=== PATIENT | male | born 1990 | race African-American/Black ===

== ENCOUNTER 2018-10-21 06:38 | Day surgery (SDC) | payer OTHER ==
[~2018-10-21 06:38] MED LIST: CEFAZOLIN 1 GM/D5W RTU 1 GM/50 ML RTUPB IV PRN
[2018-10-21] MEDS ORDERED: LIDOCAINE 2% INJ (20 MG/ML) 20 ML MDV ONE (07:13)
[2018-10-21] MEDS ORDERED: ONDANSETRON HCL INJ/PF 4 MG/2 ML SDV ONE (07:25)
[2018-10-21] MEDS ORDERED: HYDROMORPHONE HCL INJ/PF 2 MG/ML AMPULE ONE (07:26)
[2018-10-21] MEDS ORDERED: MIDAZOLAM 2 MG/2 ML INJ ONE (07:26)
[2018-10-21] MEDS ORDERED: DEXAMETHASONE SOD PHOSPHATE INJ 4 MG/1 ML VIAL ONE (07:26)
[2018-10-21] MEDS ORDERED: SUCCINYLCHOLINE CHLORIDE INJ 200 MG/10 ML VIAL ONE (07:27)
[2018-10-21] MEDS ORDERED: PROPOFOL INJ 200 MG/20 ML VIAL IV ONE (07:27)
[2018-10-21] MEDS ORDERED: FENTANYL CITRATE INJ/PF 100 MCG/2 ML AMPUL ONE (07:40)
[2018-10-21] MEDS: BUPIVACAINE HCL 0.5 % INJ/PF 30 ML SDV ONE ×2 (08:50)
[2018-10-21] MEDS: NORMAL SALINE INJ/PF 0.9% 10 ML SDV ONE ×2 (09:10)
[2018-10-21] MEDS: POLYMYXIN B SULFATE INJ 500000 UNIT VIAL ONE ×2 (09:10)
[2018-10-21] MEDS: BACITRACIN INJ 50,000 UNIT VIAL ONE ×2 (09:10)
[2018-10-21] MEDS: BUPIVACAINE INJ/PF LIPOSOME/PF 266 MG/20 ML SDV ONE ×2 (09:15)
[2018-10-21] MEDS ORDERED: KETOROLAC TROMETHAMINE INJ/PF 30 MG/1 ML SDV ONE (09:21)
--- NOTE | 2018-10-21 10:04 | RADIOLOGY REPORT (SQ) ---
EXAM DESCRIPTION: NO CHG FLUORO; FOOT RIGHT 2 VIEWS COMPLETED DATE/TIME: 10/21/2018 9:38 am REASON FOR STUDY: RT FOOT BUNIONECTOMY/SESMOIDECTOMY COMPARISON: None. FINDINGS: Fluoro time 12 seconds. 2 images obtained. Patient undergoing bunionectomy. Please correlate with operative note. TECHNICAL DOCUMENTATION: JOB ID: [id number] Reading location - IP/workstation name: [email or web address]
--- NOTE | 2018-10-21 10:04 | RADIOLOGY REPORT (SQ) ---
EXAM DESCRIPTION: NO CHG FLUORO; FOOT RIGHT 2 VIEWS COMPLETED DATE/TIME: 10/21/2018 9:38 am REASON FOR STUDY: RT FOOT BUNIONECTOMY/SESMOIDECTOMY COMPARISON: None. FINDINGS: Fluoro time 12 seconds. 2 images obtained. Patient undergoing bunionectomy. Please correlate with operative note. TECHNICAL DOCUMENTATION: JOB ID: [id number] Reading location - IP/workstation name: [email or web address]
--- NOTE | 2018-10-21 10:27 | [facility]ARE OPERATIVE REPORT E ---
[facility] Operative Report NAME: MARTÍN MUNOZ AGE: 28Y DATE OF SURGERY: 10/21/2018 ROOM: PREOPERATIVE DIAGNOSES: 1. Hallux abductovalgus, right foot. 2. Nonhealed fracture of the medial sesamoid of the right foot. POSTOPERATIVE DIAGNOSES: 1. Hallux abductovalgus, right foot. 2. Nonhealed fracture of the medial sesamoid of the right foot. OPERATION: 1. Eitan bunionectomy with internal screw fixation. 2. Excision of medial sesamoid, first metatarsophalangeal joint, right. SURGEON: RAD BUI DPM ANESTHESIA: General. PROCEDURE: On 10/21/2018 the patient was admitted to [facility] with complaints of painful right foot. The patient was taken to the operating room where following the induction of general anesthesia the patient's right foot and leg were prepped and draped in the usual sterile manner. Tourniquet was placed proximal to the ankle malleoli. Esmarch was applied. Tourniquet was inflated to a level of 250 mmHg. Esmarch was removed. Sterile draping was completed. The following procedure was performed. Attention was directed to the dorsal aspect of the patient's first metatarsophalangeal joint where a 5 cm curvilinear incision was placed medial to the longus extensor tendon. This was deepened through the subcutaneous tissue and superficial fascia. All bleeding vessels were clamped, ligated, and Bovied as necessary for hemostasis. The incision was further deepened via sharp and blunt dissection. The longus extensor tendon was identified, undermined, and retracted laterally for preservation. An incision was made in the capsular and periosteal structures in a similar fashion as the original skin incision. Capsular and periosteal structures were freed from their osseous attachments, retracted as necessary for exposure of the first metatarsophalangeal joint. There was noted to be hypertrophied medial aspect of the first metatarsal head. The medial metatarsal was then osteotomized in dorsal plantar fashion, removing approximately a 2 mm wedge of bone. Attention was directed to the first interspace. Dissection was carried down to the adductor hallucis which was then freed from its osseous attachments, thus relieving lateral contracture of the hallux. Attention was redirected back to the first metatarsophalangeal joint. There was noted to be a small, cartilaginous erosion that was located centrally on the first metatarsal head, approximately 3 mm in diameter. The articula surface of the base of the proximal phalanx was normal. Attention was then directed to the medial plantar aspect of the joint and the medial sesamoid was identified. The old fracture line was examined and identified, and the distal medial portion of the sesamoid was noted to be devoid of articular cartilage and yellow in appearance. The plantar aspect of the medial sesamoid groove was examined and it was noted to be completely eroded articular surface. It was felt at this time that removal of the medial sesamoid would help relieve the patient's preoperative painful symptoms. At this time, utilizing sharp dissection, the 2 fragments of the medial sesamoid were then removed en toto. The long flexor tendon was identified and noted to be intact and without damage. At that time attention was directed to the head of the first metatarsal where the prior cartilaginous lesion was identified and was sharply excised, and the edges were then feathered. Then, utilizing a 1.1 mm drill bit, the hole was then fenestrated to allow for fibrocartilage growth. At that time attention was directed to the medial aspect of the first metatarsal shaft. At that time an Eitan-type osteotomy was then performed. This is a [employer] osteotomy with the apex being distally located was then performed from medial to lateral, freeing the first metatarsal head from the shaft. The head was then transposed to a more midline position, reducing the intermetatarsal angle. Range of motion of the first metatarsal joint was then examined and it was felt that it was still a bit tight. The patient did have slight elevatus of the first metatarsal. At that time a second osteotomy was performed on the dorsal aspect of the first metatarsal osteotomy, removing approximately a 2 mm wedge of bone. The head was then impacted back onto the first metatarsal shaft in a corrected position. Range of motion was attempted again and was noted to be approximately 60 degrees of dorsiflexion on the table at that time. It was felt that the correction was adequate, at this time the osteotomy was then fixated with the 0.045 K wire. Fluoroscopic studies were obtained to verify correction. It was determined that a 22 mm 3.0 cannulated screw was the proper screw, which was then inserted from dorsal distal to plantar proximal utilizing the screw set technique. Redundancy of bone on the medial first metatarsal shaft was then osteotomized in dorsal plantar fashion. The area was then rasped smooth with a power rasp. The wound was then flushed with copious amounts of sterile antibiotic solution, inspected for any soft tissue or osseous debris with none being noted. Then bone wax was applied to the exposed medullary surfaces. The screw was then checked for tightness and tightened as needed. It was felt that correction was adequate at this time. At this time 10 mL of 0.5% Marcaine plain were then injected in a Senior block. At that time the capsular and periosteal structures were then coapted and maintained utilizing simple interrupted suture of 3-0 Vicryl. Subcutaneous tissue was then coapted and maintained utilizing simple suture of 4-0 Vicryl. Exparel was then injected subcuticular in the periwound area utilizing 20 mL. At that time the incision was then coapted and maintained with interrupted horizontal mattress suture of 5-0 nylon. Sterile dressing consisting of gauze, sterile 4 x 4's, Maylin, Kerlix, and Coflex was applied to the patient's right foot. Tourniquet was rapidly deflated. Capillary filling time was noted to be instantaneous to all digits. The patient appeared to tolerate surgery and anesthesia well and left the OR in fair condition, all vital signs stable, taken to the recovery room. DICTATING PHYSICIAN: RAD BUI DPM [id number] PHY#: [id number] ID: [id number] JOB#: [id number] ACCT: [id number] cc:RAD BUI DPM > [facility]
--- NOTE | 2018-10-23 16:02 | [facility] DISCHARGE SUMMARY E ---
[facility] Discharge Summary NAME: MARTÍN MUNOZ AGE: 28Y ADMITTED: 10/21/2018 DISCHARGED: 10/21/2018 FINAL DIAGNOSES: 1. Hallux abductovalgus of the right foot. 2. A nonhealed fracture of the medial sesamoid of the first metatarsophalangeal joint, right foot. PROCEDURE PERFORMED: 1. Eitan bunionectomy with internal screw fixation, right foot. 2. Excision of medial sesamoid, first metatarsophalangeal joint, right foot. HOSPITAL COURSE: On 10/21/2018 the patient was admitted to [facility] with complaints of painful right foot. Was taken to the operating room, above procedure performed. The patient tolerated surgery and anesthesia well and was later discharged from the [facility] with prescriptions for Percocet 10 mg, Phenergan 25 mg, and Keflex 500 mg. Given a postoperative surgical shoe. Postoperative orders to include rest, ice, and elevation, and given a followup appointment for 1 week. DICTATING PHYSICIAN: RAD BUI DPM [id number] PHY#: [id number] ID: [id number] JOB#: [id number] ACCT: [id number] cc:RAD BUI DPM >
== END 2018-10-21 11:40 | disposition home or self-care (01) ==
LOC: SC 06:38
PROVIDERS: ATTEND Preventive Medicine Undersea and Hyperbaric Medicine
DX: M20.11 Hallux valgus (acquired), right foot (principal); S92.811A Other fracture of right foot, initial encounter for closed fracture; X58.XXXA Exposure to other specified factors, initial encounter; G40.909 Epilepsy, unspecified, not intractable, without status epilepticus; Z79.899 Other long term (current) drug therapy; E66.9 Obesity, unspecified; Z68.37 Body mass index [BMI] 37.0-37.9, adult
CPT/HCPCS: 73620; 28296; C1713; C1769; J2250; J3490 ×4; J0690; J1100; J3010; J1885; J1170; J0330; J2405; J2704; C9290; 01480